=== PATIENT | female | born 1985 | race Hispanic/Latino ===

== ENCOUNTER 2023-06-10 15:41 | Emergency (ER) | payer MEDICAID ==
[~2023-06-10] VITALS: Ht 157.5 cm; Wt 145.1 kg
[~2023-06-10 15:41] MED LIST: ESCI-8 PO; GLYC1MED48 TP; HALO5TAB PO; ITRA100C3 PO; KETO15CR2 TP; OXCA300O4 PO; PHEN28OI9 RC; SUCR1TAB2 PO
[2023-06-10 15:44] VITALS: BP 147/82; PULSE 85; RESP 16
[2023-06-10] MEDS ORDERED: CYCLOBENZAPRINE HCL 10 MG TABLET PO ONE (18:30)
[2023-06-10] MEDS ORDERED: ACETAMINOPHEN 500 MG TABLET PO ONE (18:30)
== END 2023-06-10 20:06 | disposition left against medical advice (07) ==
LOC: EDH 15:41
DX: M54.50 Low back pain, unspecified (principal); F17.200 Nicotine dependence, unspecified, uncomplicated; Z20.822 Contact with and (suspected) exposure to COVID-19; Z79.899 Other long term (current) drug therapy; Z98.890 Other specified postprocedural states; Z88.0 Allergy status to penicillin
CPT/HCPCS: 87426